=== PATIENT | male | born 1960 | race Caucasian/White ===

== ENCOUNTER → 2017-10-30 | Outpatient (CLI) | payer OTHER ==
[2017-10-30 13:54] LABS: ADD MAN DIFF? NO
[2017-10-30 13:56] LABS: BASO # 0.1 x10^3/uL (0.0-0.2); BASO % 1 % (0-3); EOS # 0.1 x10^3/uL (0.0-0.7); EOS % 2 % (0-3); HEMATOCRIT 39.3 % (39.0-53.0); HEMOGLOBIN 13.5 g/dL (13.0-17.5); LYMPH % 29 % (24-48); MEAN CORPUSCULAR HEMOGLOBIN 31 pg (25-35); MEAN CORPUSCULAR HGB CONC 34 g/dL (31-37); MEAN CORPUSCULAR VOLUME 91 fL (79-100); MONO # 0.8 x10^3/uL (0.0-1.1); MONO % 11 % (0-9); NEUT # 3.8 x10^3uL (1.8-7.7); NEUT % 56 % (31-73); PLATELET COUNT 210 x10^3/uL (140-400); RED BLOOD COUNT 4.33 x10^6/uL (4.30-5.70); WHITE BLOOD COUNT 6.8 x10^3/uL (4.0-11.0)
[2017-10-30 14:04] LABS: ANION GAP 7 (6-14); BLOOD UREA NITROGEN 36 mg/dL (8-26); CALCIUM 8.8 mg/dL (8.5-10.1); CARBON DIOXIDE 29 mmol/L (21-32); CHLORIDE 101 mmol/L (98-107); CREATININE 1.4 mg/dL (0.7-1.3); GFR 52.6; GLUCOSE 99 mg/dL (70-99); POTASSIUM 3.8 mmol/L (3.5-5.1); SODIUM 137 mmol/L (136-145)
== END | disposition home or self-care (01) ==
LOC: SURGPAT 13:17
DX: Z01.818 Encounter for other preprocedural examination (principal)
CPT/HCPCS: 36415; 80048; 85025

== ENCOUNTER 2017-11-20 09:00 | Day surgery (SDC) | payer OTHER ==
[~2017-11-20] VITALS: Ht 185.4 cm; Wt 64.9 kg
[~2017-11-20 09:00] MED LIST: BUPIVACAINE-EPI 0.25%-1:200000 50 ML VIAL. ONE; LOSA25TA4 PO
[2017-11-20] MEDS ORDERED: PROPOFOL 20 ML IV ONE (09:05)
[2017-11-20] MEDS ORDERED: LIDOCAINE 2% PF Vial for OR 5 ML VIAL. ONE (09:05)
[2017-11-20] MEDS ORDERED: fentaNYL PF VIAL 100 MCG/2 ML VIAL ONE ×2 (09:06→10:56)
[2017-11-20] MEDS ORDERED: ROCURONIUM 50 MG/5 ML VIAL. ONE ×2 (09:06→10:27)
[2017-11-20] MEDS ORDERED: MIDAZOLAM HCL/PF 2 MG/2 ML VIAL. ONE (09:06)
[2017-11-20] MEDS: IV RINGERS,LACTATED 1000ML 1,000 ML IV SCH ×2 (09:36→12:17)
[2017-11-20] MEDS ORDERED: DEXAMETHASONE SOD PHOS 20 MG/5 ML VIAL. ONE (10:17)
[2017-11-20] MEDS ORDERED: ONDANSETRON PF 4 MG/2 ML VIAL. ONE (10:17)
[2017-11-20] MEDS ORDERED: GLYCOPYRROLATE 1 MG/5 ML VIAL. ONE (10:31)
[2017-11-20] MEDS ORDERED: NEOSTIGMINE METHYLSULFATE 5 MG/5 ML SYRINGE. ONE (10:32)
[2017-11-20] MEDS ORDERED: KETOROLAC 30 MG/ML INJ FOR OR. INJ ONE (10:52)
[2017-11-20] MEDS ORDERED: IV RINGERS,LACTATED 1000ML 1,000 ML IV SCH (11:02)
--- NOTE | 2017-11-20 11:05 | PDOC4 ---
Operative Note Operative Note Date: 11/20/2017 Preoperative diagnosis: Bilateral inguinal hernias Postoperative diagnosis: Right inguinal hernia left groin adhesions Procedure: Diagnostic laparoscopy with lysis of left groin adhesions and robotic -assisted laparoscopic right inguinal hernia repair with mesh Surgeon: Blane Specimen: None Dictation: Patient is a 57-year-old gentleman with complaints of right groin bulge and pain as well as left inguinal pain. Previous left inguinal hernia repair many years ago. Procedure of bilateral robotic-assisted laparoscopic inguinal hernia repair was explained to the patient detail was benefits were also discussed including bleeding infection alternatives to this procedure also discussed with patient including further or open operations also discussed that the left inguinal pain may not be a hernia but could be related to mesh from previous surgery. Patient seemed understanding gave both verbal and written consent to have the procedure performed. Patient was taken to the operating room placed in supine position general anesthesia was initiated once patient was asleep and intubated placed in low lithotomy positioning an area at the umbilicus was injected with quarter percent Marcaine with epinephrine incision was made lead blade scalpel and a varies needle was placed within the abdomen creating pneumoperitoneum once this was complete 8 mm da Melchor port was placed and a 30 camera was placed within the abdomen which was inspected was noted that there was a small inguinal hernia on the right but on the left there was some adhesions to the sigmoid colon over the previous hernia repair. At this point a 8 mm da Melchor port was placed in the right mid abdomen and one in the left mid abdomen the da Melchor robot was brought in and docked all port sites and the surgeon went to the robotic console using grasper and Endo Juan scissors the adhesions of the left side were taken down with sharp dissection as well as electrocautery. There did not appear to be a hernia defect on the left side mesh appeared be in place with no defect. Tinges returned to the right side where small hernia defect peritoneum was incised and Endo Juan scissors and a flap of the peritoneum was propagated inferiorly using blunt and sharp dissection the hernia sac was dissected free of the inguinal canal structures and a medium Bard 3-D max mesh was placed over the right inguinal hernia and the peritoneum was then closed with a running 30V lock suture. On the left side where the adhesions were taken down there was a small hole and the peritoneum this was closed with a running 30V lock suture. The da Melchor ports were removed the pneumoperitoneum was reduced the da Melchor undocked and removed from this operative field the wounds were then closed with running 4-0 Monocryl subcuticular stitch. Mastisol Steri-Strips Band-Aids were applied as dressings. Patient was waken expanded in the operating room taken recovery in stable condition all sponge instrument needle counts listed as correct estimated blood loss 10 mL VALDEZ GOLD MD Nov 20, 2017 11:05
--- NOTE | 2017-11-20 11:06 | DISCH ---
DISCHARGE INSTRUCTIONS Condition on Discharge Condition on Discharge: Stable Activity After Discharge Activity Instructions for Disc: Avoid exertion Other activity instructions: no lifting more than 20 pounds for 2 weeks Diet after Discharge Diet after Discharge: Regular Wound Incision Care Other wound/incision instructi: May shower in 24 hours Contacting the DRMaxime after DC Call your doctor for: If your condition worsens Follow-Up Follow up with: Dr. Gold in 2 weeks VALDEZ GOLD MD Nov 20, 2017 11:06
[2017-11-20] MEDS ORDERED: OXYC-323 PO (11:11)
[2017-11-20] MEDS ORDERED: MORPHINE SULFATE 2 MG/ML DISP.SYRIN. IV PRN (11:15)
[2017-11-20] MEDS ORDERED: ONDANSETRON PF 4 MG/2 ML VIAL. IV PRN (11:15)
[2017-11-20] MEDS ORDERED: LIDOCAINE 1% PF 2 ML VIAL. ID PRN (11:15)
[2017-11-20] MEDS ORDERED: PROCHLORPERAZINE 10 MG/2 ML VIAL. IV PRN (11:15)
[2017-11-20] MEDS ORDERED: fentaNYL PF VIAL 100 MCG/2 ML VIAL IV PRN ×2 (11:15)
[2017-11-20] MEDS ORDERED: oxyCODONE/APAP 5/325 1 TAB TABLET PO ONE (11:45)
[2017-11-20] MEDS ORDERED: ceFAZolin 2GM PREMIX 2 GM/50 ML BAG IV ONE (12:00)
[2017-11-20 12:45] VITALS: BP 155/58
== END 2017-11-20 13:26 | disposition home or self-care (01) ==
LOC: SURG 09:00
PROVIDERS: ATTEND Surgery
DX: K40.90 Unilateral inguinal hernia, without obstruction or gangrene, not specified as recurrent (principal); K66.0 Peritoneal adhesions (postprocedural) (postinfection); I10 Essential (primary) hypertension; Z98.890 Other specified postprocedural states; F17.210 Nicotine dependence, cigarettes, uncomplicated; Z86.010 Personal history of colon polyps; Z72.89 Other problems related to lifestyle; Z79.899 Other long term (current) drug therapy
CPT/HCPCS: 49650; C1781; J0690; J1100; J1885; J2001; J2250; J2405; J2704; J2710; J3010; J3490; J7120; A7015